=== PATIENT | male | born 1995 | race Caucasian/White ===

== ENCOUNTER 2019-07-14 06:20 | Inpatient (IN) | payer OTHER ==
[~2019-07-14] VITALS: Ht 175.3 cm; Wt 68.5 kg
[~2019-07-14 06:20] MED LIST: HUMALOG100 U/ML; HUMULIN N3 ML
--- NOTE | 2019-07-14 06:54 | NUR ---
PTE REFIERE VOMITOS Y AZUCAR ELEVADA SE YUE S/V Y SE UBICA EN AREA DE OBSERVACION
--- NOTE | 2019-07-14 07:24 | NUR ---
PTE ES EVALUADO POR DRA. FAJARDO QUIEN ORDENA TRATAMIENTO MEDICO. SE EDUCA A PTE SOBRE ORDENES MEDICAS QUIEN REFIERE ENTENDER. CANALIZA A PTE Y REALIZA MUESTRAS DE BRIDGET BAJO MEDIDAS ASEPTICAS Y SON ENVIADAS A LABORATORIO. ADMINISTRA MEDICAMENTOS ATIYA ORDEN MEDICA LOS CUALES PTE TOLERA. PTE CON ORDEN DE NPO. SE NOTIFICARON ABG'S A ROENA.
--- NOTE | 2019-07-14 07:55 | NUR ---
SE RECIBE PACIENTE EN CHA.DESPIERTA ALERTA Y ORIENTADO.ACOMPANADO POR FAMILIAR.MUESTRAS TOMADAS ATIYA ORDENADAS.MEDICAMENTOS ADMINISTRADOS ATIYA ORDENADOS.ES ORIENTADO SOBRE PROCEDIMIENTOS A LLEVARSE A CABO,LO CUAL REFIERE COMPRENDER.
--- NOTE | 2019-07-14 09:09 | NUR ---
PACIENTE ES UBICADO A EN AREA DE CHEST PAIN. SE CONECTA A MONITOR CARDIACO Y OXIMETRIA CON ALARMAS AUDIBLES. BUEN PATRON RESPIRATORIO. PIEL TIBIA AL TACTO. CANALIZACION PATENTE, DIANDRA DE EDEMA Y/O ENROJECIMIENTO RECIBIENDO 0.9%NSS FULL DRIP. MR PETERSON REALIZA OTRA CANALIZACION POR LA QUE SE COLOCA DRIP DE INSULINA REGULAR 100 UNIDADES/100 ML @ 10 ML/HR. MUESTRAS DE LABORATORIO SON COLECTADAS BAJO MEDIDAS ASEPTICAS. SE MANTIENE BAJO OBSERVACION POR CAMBIOS.
--- NOTE | 2019-07-14 10:09 | NUR ---
SE RECIBE ORDEN DE ABG'S LOS CUALES SE NOTIFICAN A MR BHARDWAJ DE TERAPIA RESPIRATORIA. SE LE ADMINISTRA A PT D5W.45 BAJANDO A 250ML/HR POR VENOPUNCION EN MANO LT. IVF'S PATENTES.
--- NOTE | 2019-07-14 12:20 | NUR ---
PTE PRESENTA DXT (149 MG/DL); SE NOTIFICA A DR CROWDER. ORDENA BAJAR DRIP DE INSULINA A 2 ML/HR. PACIENTE EN ESPERA DE CONSULTA CON DR DURÁN.
--- NOTE | 2019-07-14 13:00 | NUR ---
SE NOTIFICA A DR CROWDER DXT (139 MG/DL). SE COLOCA DRIP DE INSULINA A 1 ML/HR. APOLINAR REALIZA ABG; SE NOTIFICA A MR LASHAE.
--- NOTE | 2019-07-14 13:28 | NUR ---
MR LASHAE REALIZA ABG; DR CROWDER REFIERE QUE EL PACIENTE CONTINUARA CON DRIP DE INSULINA A 1 ML/HR Y D5W/0.45%NSS @ 250 ML/HR. SE MANTIENE BAJO OBSERVACION POR CAMBIOS.
--- NOTE | 2019-07-14 15:41 | NUR ---
PT ALERTA Y ORIENTADO X3 ESFERAS SE RECIBE EN UNIDAD DE DOLOR DE [place], CUBICULO 17. EN CHA CON BARANDAS ELEVADAS Y FRENOS COLOCADOS. PUPILAS REACCIONAN A LA BRENDA, ASISTENCIA RESPIRATORIA POR N/C A 2LT. CONECTADO A MONITOR CARDIACO HR 77 Y SATUROMETRO DE PULSO 100%, 22RR. ABDOMEN BLANDO. ORINA ESPONTANEA. EXTREMIDADES INFERIORES LIBRES DE EDEMA Y/O ERITEMA. EXTREMIDADES SUPERIORES LIBRES DE EDEMA Y/O ERTIEMA. HEPARIN LOCK EN MANO IZQUIERDA CON ANGIO 20 PATENTE DIANDRA DE EDEMA Y/O ERITEMA. HEPARIN LOCK EN ANTEBRAZO LAMBERTO CON ANGIO 20 PATENTE, DIANDRA DE EDEMA Y/O ERITEMA. IVFLUIDS: 0.45NSS/DSW AT 250ML/HRS BAJANDO POR REGULADOR. DRIP DE INSULINA REGULAR 100UNITS/100ML BAJANDO A 1ML/HRS. PT TOLERA TX. SE MANTIENE BAJO OBSERVACION POR CAMBIOS EN THOMAS. PENDIENTE VISITA DE INTERNISTA.
--- NOTE | 2019-07-14 15:46 | NUR ---
PT PRESENTA DXT DE 197MG/DL, EL ULTIMO EN 171MG/DL HACE SERA HORA, SE CONSULTA CON DR CROWDER. ORDENA AUMENTAR DOSIS A 1 ML ADICIONAL, SERIA IGUAL; DRIP DE INSULINA REGULAR 100U/100ML AT 2ML/HRS.
== END 2019-07-15 13:26 | disposition home or self-care (01) | DRG 639 ==
LOC: ER 06:20 → MEDJ 19:15 → SEC-K 19:15 → MEDJ 22:15
PROVIDERS: ADMIT Internal Medicine
PROC: 4A033R1 Measurement of Arterial Saturation, Peripheral, Percutaneous Approach (ICD-10-PCS; principal; 2019-07-14)
DX: E10.10 Type 1 diabetes mellitus with ketoacidosis without coma (principal); E87.8 Other disorders of electrolyte and fluid balance, not elsewhere classified; E86.0 Dehydration; Z79.4 Long term (current) use of insulin

== ENCOUNTER 2023-04-01 21:46 | Emergency (ER) | payer OTHER ==
[~2023-04-01] VITALS: Ht 172.7 cm; Wt 75.3 kg
[2023-04-01] MEDS ORDERED: LANTUS SOL100 UNIT/1 (22:01)
[2023-04-02] MEDS ORDERED: AMOX-CLAV 875-1 EACH PO (00:54)
[2023-04-02] MEDS ORDERED: DICLOFENAC SODI75 MG PO (00:54)
== END 2023-04-02 01:47 | disposition home or self-care (01) ==
LOC: ER 21:46
DX: H66.91 Otitis media, unspecified, right ear (principal); E13.9 Other specified diabetes mellitus without complications; Z79.4 Long term (current) use of insulin